=== PATIENT | male | born 1965 | race Caucasian/White ===

== ENCOUNTER 2024-03-03 09:35 | Day surgery (SDC) | payer BC ==
[2024-02-25 14:53] VITALS: BMI 29.1
[2024-03-03 11:33] VITALS: TEMP 98
[2024-03-03 11:35] VITALS: BP 112/61; PULSE 68; RESP 19
== END 2024-03-03 11:30 | disposition home or self-care (01) ==
LOC: FASU-ENDO 09:35
PROVIDERS: ATTEND Internal Medicine Gastroenterology
PROC: 0DJD8ZZ Inspection of Lower Intestinal Tract, Via Natural or Artificial Opening Endoscopic (ICD-10-PCS; principal; 2024-03-03 10:24)
DX: Z12.11 Encounter for screening for malignant neoplasm of colon (principal); K64.1 Second degree hemorrhoids; K64.8 Other hemorrhoids; K57.30 Diverticulosis of large intestine without perforation or abscess without bleeding; K92.1 Melena